=== PATIENT | female | born 1960 | race African-American/Black ===

== ENCOUNTER 2020-01-11 13:05 | Emergency (ER) | payer SELFPAY ==
--- NOTE | 2020-01-11 13:42 | RAD ---
LEFT THUMB 3 VIEWS: Date: 01/11/2020 HISTORY: Pain and swelling in the left thumb. FINDINGS/IMPRESSION: No acute fracture or dislocation is seen. There are degenerative changes. No radiopaque foreign body is identified. POS: OFF
== END 2020-01-11 14:36 | disposition home or self-care (01) ==
LOC: ERS 13:05
DX: L08.9 Local infection of the skin and subcutaneous tissue, unspecified (principal); E05.90 Thyrotoxicosis, unspecified without thyrotoxic crisis or storm; I10 Essential (primary) hypertension

== ENCOUNTER 2020-02-06 13:14 | Emergency (ER) | payer SELFPAY | END 2020-02-06 14:22 | disposition left against medical advice (07) | LOC: ERS 13:14 | DX: Z53.21 Procedure and treatment not carried out due to patient leaving prior to being seen by health care provider (principal) ==

== ENCOUNTER 2020-02-07 07:57 | Emergency (ER) | payer SELFPAY ==
[2020-02-07] MEDS ORDERED: Bacitracin 1 PK ONE (09:36)
--- NOTE | 2020-02-07 09:38 | RAD ---
LEFT HAND 3 VIEWS: Date: 02/07/2020 HISTORY: Injury, possible foreign body, possible abscess, possible cyst formation. FINDINGS: Focal soft tissue nodular swelling of the thumb. Osteoarthrosis and degenerative changes. No evidence for a metal density foreign body. No acute fracture or dislocation. IMPRESSION: Focal nodular soft tissue swelling of the thumb. No metal foreign body. Osteoarthrosis and degenerati ve change. POS: AH
== END 2020-02-07 09:35 | disposition home or self-care (01) ==
LOC: ERS 07:57
DX: L88 Pyoderma gangrenosum (principal); E05.90 Thyrotoxicosis, unspecified without thyrotoxic crisis or storm; I10 Essential (primary) hypertension